=== PATIENT | female | born 1990 | race American Indian/Alaskan Native ===

== ENCOUNTER 2020-03-09 20:30 | Emergency (ER) | payer SELFPAY ==
[2020-03-09] MEDS ORDERED: SODIUM CHLORIDE 0.9% 1000 ML 1,000 ML IV ONE (21:04)
[2020-03-09] MEDS ORDERED: SODIUM CHLORIDE 0.9% 1000 ML 1,000 ML ONE (21:04)
[2020-03-09] MEDS ORDERED: ONDANSETRON 4 MG/2 ML INJ IV ONE (21:04)
[2020-03-09] MEDS ORDERED: ONDANSETRON 4 MG/2 ML INJ ONE (21:04)
--- NOTE | 2020-03-09 21:08 | Emergency Department Report ---
ED Abdominal Pain HPI - General Chief Complaint: Abdominal Pain Stated Complaint: ABDOMINAL PAIN Time Seen by Provider: 03/09/20 20:53 Source: patient, EMS Mode of arrival: Ambulatory Limitations: No Limitations - History of Present Illness Initial Comments: Patient is 29 years old female 3 para 2 at 17 weeks gestation. Patient presented to the ER via EMS from home for evaluation of diffuse abdominal pain, nausea and vomiting started this morning. Patient denied any fever, chills, cough or shortness of breath. Patient also indicated that she will have some pressure in her suprapubic area when she go to the bathroom. MD Complaint: abdominal pain -: This morning Location: diffuse Radiation: none Migration to: no migration Severity scale (0 -10): 9 Quality: fullness Consistency: intermittent - Related Data Allergies Allergy/AdvReac Type Severity Reaction Status Date / Time No Known Allergies Allergy Unverified 03/09/20 20:45 ED Review of Systems ROS: Stated complaint: ABDOMINAL PAIN Other details as noted in HPI Comment: All other systems reviewed and negative Constitutional: denies: chills, diaphoresis Respiratory: denies: cough, shortness of breath Cardiovascular: denies: chest pain, palpitations Gastrointestinal: abdominal pain, nausea, vomiting. denies: diarrhea, constipation, hematemesis, melena, hematochezia Genitourinary: frequency Musculoskeletal: denies: back pain Neurological: denies: headache, weakness, numbness, paresthesias, confusion ED Past Medical Hx - Past Medical History Previous Medical History?: No - Social History Smoking Status: Former Smoker Substance Use Type: None ED Physical Exam - General Limitations: No Limitations General appearance: alert, in no apparent distress - Head Head exam: Present: atraumatic, normocephalic, normal inspection - Eye Eye exam: Present: normal appearance, PERRL - ENT ENT exam: Present: mucous membranes dry - Neck Neck exam: Present: normal inspection, full ROM. Absent: tenderness, meningismus, lymphadenopathy, thyromegaly - Respiratory Respiratory exam: Present: normal lung sounds bilaterally - Cardiovascular Cardiovascular Exam: Present: regular rate, normal rhythm, normal heart sounds - GI/Abdominal GI/Abdominal exam: Present: soft, normal bowel sounds. Absent: distended, tenderness, guarding, rebound, rigid, organomegaly, mass, bruit, pulsatile mass, hernia - Extremities Exam Extremities exam: Present: normal inspection, full ROM, normal capillary refill. Absent: tenderness, pedal edema, calf tenderness - Back Exam Back exam: Present: normal inspection, full ROM. Absent: CVA tenderness (R), CVA tenderness (L) - Neurological Exam Neurological exam: Present: alert, oriented X3, CN II-XII intact, normal gait, reflexes normal. Absent: motor sensory deficit - Psychiatric Psychiatric exam: Present: normal mood - Skin Skin exam: Present: warm, intact, normal color ED Course Vital Signs 03/09/20 03/10/20 20:43 01:55 Temperature 98.1 F Pulse Rate 85 Respiratory 20 18 Rate Blood Pressure 161/86 [Right] O2 Sat by Pulse 100 Oximetry ED Medical Decision Making - Lab Data Result diagrams: 03/09/20 21:10 03/09/20 21:10 - Radiology Data Radiology results: report reviewed - Medical Decision Making Patient is 29 years old female 3 para 2 at 17 weeks gestation. Patient presented to the ER via EMS from home for evaluation of diffuse abdominal pain, nausea and vomiting started this morning. Patient denied any fever, chills, cough or shortness of breath. Patient also indicated that she will have some pressure in her suprapubic area when she go to the bathroom. Patient received normal saline, Zofran x2, morphine and Rocephin. Labs reviewed and showed a UTI. Patient ultrasound showed a 17weeks live intrauterine gestation. Patient given prescription for Zofran, Tylenol 3 and Macrobid and strongly advised to follow-up with her OB doctor in the next 2 to 3 days and to return to the ER if she develop any new symptoms. Critical care attestation.: If time is entered above; I have spent that time in minutes in the direct care of this critically ill patient, excluding procedure time. ED Disposition Clinical Impression: Abdominal pain affecting , UTI in , Nausea/vomiting in Disposition: -01 TO HOME OR SELFCARE Is pt being admited?: No Condition: Stable Instructions: Abdominal Pain (ED), Abdominal Pain in (ED), Urinary Tract Infection in Women (ED) Referrals: PRIMARY CARE, [Primary Care Provider] - 3-5 Days
[2020-03-09 21:25] LABS: Basophils % (Auto) 0.4 % (0.0-1.8); Eosinophils # (Auto) 0.2 K/mm3 (0.0-0.4); Eosinophils % (Auto) 1.9 % (0.0-4.3); Hematocrit 33.5 % (30.3-42.9); Hemoglobin 10.8 gm/dl (10.1-14.3); Lymphocytes # (Auto) 1.2 K/mm3 (1.2-5.4); Lymphocytes % (Auto) 10.3 % (13.4-35.0); Mean Corpuscular HGB Conc 32 % (30-34); Mean Corpuscular Volume 75 fl (79-97); Monocytes # (Auto) 0.6 K/mm3 (0.0-0.8); Monocytes % (Auto) 5.3 % (0.0-7.3); Platelet Count 177 K/mm3 (140-440); Red Blood Count 4.49 M/mm3 (3.65-5.03); Red Cell Distribution Width 19.5 % (13.2-15.2)
[2020-03-09 21:59] LABS: Alanine Aminotransferase 9 units/L (7-56); Albumin 3.6 g/dL (3.9-5); BUN/Creatinine Ratio 10; Blood Urea Nitrogen 7 mg/dL (7-17); Calcium 9.4 mg/dL (8.4-10.2); Hemolysis Index 6
[2020-03-09 22:08] LABS: Bilirubin,Direct < 0.2 mg/dL (0-0.2)
[2020-03-10 01:27] LABS: Bacteria,Urine 1+ /HPF (Negative); Bilirubin,Urine NEG (Negative); Blood,Urine NEG (Negative); Color,Urine Amber (Yellow); Mucus,Urine 3+ /HPF; Urobilinogen,Urine < 2.0 mg/dL (<2.0)
--- NOTE | 2020-03-10 01:43 | Ultrasound Report ---
Limited OB Ultrasound HISTORY: Abdominal pain, 17 weeks .. TECHNIQUE: Grayscale and color imaging performed. COMPARISON: None FINDINGS: Single intrauterine gestation with cephalic presentation. Placenta is positioned anteriorly . Heart rate is 155 bpm. Overall EGA is 17 weeks and 5 days with weight of 227 g. No acute abnormalit y identified. Cervical length was not evaluated on this exam. IMPRESSION: Single viable intrauterine gestation as above. Signer Name: Patrick Glynn MD Signed: 03/10/2020 1:38 AM Workstation Name: [id number]
[2020-03-10] MEDS ORDERED: ONDANSETRON 4 MG/2 ML INJ IV ONE (01:48)
[2020-03-10] MEDS ORDERED: cefTRIAXone/NS 1 GM/50 ML 1 GM/50 ML BAG IV ONE (01:48)
[2020-03-10] MEDS ORDERED: MORPHINE 4 MG/1 ML INJ IV ONE (01:48)
[2020-03-10] MEDS ORDERED: SODIUM CHLORIDE 0.9% 1000 ML 1,000 ML IV ONE (01:48)
[2020-03-10] MEDS ORDERED: SODIUM CHLORIDE 0.9% 1000 ML 1,000 ML ONE (01:50)
[2020-03-10] MEDS ORDERED: MORPHINE 4 MG/1 ML INJ ONE (01:50)
[2020-03-10] MEDS ORDERED: ONDANSETRON 4 MG/2 ML INJ ONE (01:50)
[2020-03-11 12:53] VITALS: BP 136/69
== END 2020-03-10 04:31 | disposition home or self-care (01) ==
LOC: ED 20:30
DX: O23.32 Infections of other parts of urinary tract in pregnancy, second trimester (principal); Z3A.17 17 weeks gestation of pregnancy
CPT/HCPCS: 36415; 76805; 80048; 80076; 81001; 83690; 84702; 85025; 87086; 96361; 96365; 96375; 99284; J0696; J2270; J2405; J7030